=== PATIENT | female | born 1945 | race Caucasian/White ===

== ENCOUNTER 2016-11-08 09:29 | Outpatient (CLI) | payer MEDICARE, BC ==
[2016-11-08 10:04] LABS: Hemoglobin 14.8 g/dL (12.0-16.0); Mean Corpuscular HGB CONC 32.3 g/dL (32.0-36.0); Mean Corpuscular Hemoglobin 30.6 pg (27.0-31.0); Mean Corpuscular Volume 94.7 fl (81.0-99.0); Mean Platelet Volume 6.4 fL (7.4-10.4); Platelet Count 325 thou/uL (130-400); RBC Distribution Width 12.2 % (11.5-14.5); Red Blood Cell (RBC) Count 4.84 mill/uL (4.20-5.40); White Blood Cell (WBC) Count 10.3 thou/uL (4.8-10.8)
[2016-11-08 10:24] LABS: ALT (SGPT) 17 U/L (0-55); AST (SGOT) 16 U/L (5-34); Albumin 4.6 g/dL (3.4-4.8); Alkaline Phosphatase 112 U/L (40-150); Anion Gap 16 mmol/L (10-20); BUN (Urea Nitrogen) 27 mg/dL (9.8-20.1); Bilirubin, Total 0.6 mg/dL (0.2-1.2); Calc. Creatinine Clearance 0 mL/min (70-130); Calcium 10.3 mg/dL (7.8-10.44); Carbon Dioxide 27 mmol/L (23-31); Cardiac Risk 2.6 (Less than 4.5); Chloride 99 mmol/L (98-107); Cholesterol 169 mg/dL (< 200 Desired); Estimated GFR-MDRD 41; Globulin 3.1 g/dL (2.4-3.5); Glucose 104 mg/dL (80-115); HDL Cholesterol 66 mg/dL (>60 Neg Risk); LDL Cholesterol, Calculated 58 mg/dL; Potassium 4.5 mmol/L (3.5-5.1); Protein, Total 7.7 g/dL (5.8-8.1); Sodium 137 mmol/L (136-145); Triglycerides 227 mg/dL (Less than 150)
[2016-11-08 13:19] LABS: Thyroid Stimulating Hormone 2.9444 uIU/mL (0.35-4.94); Vitamin D, 25 Hydroxy 23.2 ng/mL (> 30.0)
== END 2016-11-08 09:30 | disposition home or self-care (01) ==
LOC: MADLAB 09:29
PROVIDERS: ATTEND Internal Medicine
DX: Z00.00 Encounter for general adult medical examination without abnormal findings (principal); E78.00 Pure hypercholesterolemia, unspecified; R53.83 Other fatigue; E55.9 Vitamin D deficiency, unspecified; I10 Essential (primary) hypertension
CPT/HCPCS: 36415; 80053; 80061; 82306; 84443; 85027

== ENCOUNTER 2017-05-02 10:34 | Outpatient (CLI) | payer MEDICARE, BC ==
[2017-05-02 11:11] LABS: Hemoglobin 15.1 g/dL (12.0-16.0); Mean Corpuscular HGB CONC 32.3 g/dL (32.0-36.0); Mean Corpuscular Hemoglobin 30.9 pg (27.0-31.0); Mean Corpuscular Volume 95.6 fl (81.0-99.0); Mean Platelet Volume 6.2 fL (7.4-10.4); Platelet Count 333 thou/uL (130-400); RBC Distribution Width 12.6 % (11.5-14.5); Red Blood Cell (RBC) Count 4.87 mill/uL (4.20-5.40); White Blood Cell (WBC) Count 8.5 thou/uL (4.8-10.8)
[2017-05-02 12:03] LABS: Bilirubin Negative (Negative); Blood, Urine Trace (Negative); Clarity Clear (Clear); Glucose, Urine (Dipstick) Negative (Negative); Leukocyte Negative (Negative); Nitrite Negative (Negative); Protein, Urine (Dipstick) Negative (Neg-Trace); Urobilinogen 0.2 mg/dL (0.2-1.0)
[2017-05-02 12:11] LABS: ALT (SGPT) 20 U/L (8-55); AST (SGOT) 15 U/L (5-34); Alkaline Phosphatase 137 U/L (40-150); Anion Gap 12 mmol/L (10-20); BUN (Urea Nitrogen) 22 mg/dL (9.8-20.1); Bilirubin, Total 0.5 mg/dL (0.2-1.2); Calc. Creatinine Clearance 0 mL/min (70-130); Calcium 9.6 mg/dL (7.8-10.44); Carbon Dioxide 30 mmol/L (23-31); Cardiac Risk 2.7 (Less than 4.5); Chloride 102 mmol/L (98-107); Cholesterol 166 mg/dl (< 200 Desired); Estimated GFR-MDRD 47; Globulin 3.2 g/dL (2.4-3.5); Glucose 99 mg/dL (80-115); HDL Cholesterol 61 mg/dL (>60 Neg Risk); LDL Cholesterol, Calculated 71 mg/dL; Potassium 4.2 mmol/L (3.5-5.1); Protein, Total 7.2 g/dL (6.0-8.3); Sodium 140 mmol/L (136-145); Triglycerides 172 mg/dL (Less than 150)
[2017-05-02 12:22] LABS: Bacteria/HPF Rare-Few HPF (None Seen); RBC/HPF 0-3 HPF (0-3); Squamous Epithelial 0-3 HPF (0-3); WBC/HPF 0-3 HPF (0-3)
[2017-05-02 12:24] LABS: Thyroid Stimulating Hormone 2.1155 uIU/mL (0.35-4.94); Vitamin D, 25 Hydroxy 36.1 ng/ml (> 30.0)
== END 2017-05-02 10:35 | disposition home or self-care (01) ==
LOC: MADLAB 10:34
PROVIDERS: ATTEND Internal Medicine
DX: Z00.00 Encounter for general adult medical examination without abnormal findings (principal); E03.9 Hypothyroidism, unspecified; E55.9 Vitamin D deficiency, unspecified; E78.00 Pure hypercholesterolemia, unspecified; I10 Essential (primary) hypertension; R53.83 Other fatigue; Z79.899 Other long term (current) drug therapy
CPT/HCPCS: 36415; 80053; 80061; 81003; 81015; 82306; 84443; 85027

== ENCOUNTER 2017-12-11 16:17 | Emergency (ER) | payer MEDICARE, BC ==
[2017-12-11] MEDS ORDERED: Dexamethasone 4 MG TAB ONE (16:53)
[2017-12-11] MEDS ORDERED: Dexamethasone 10 MG/ML VIAL ONE (16:53)
--- NOTE | 2017-12-11 17:21 | RAD ---
TWO VIEWS OF THE CHEST: COMPARISON: 05/06/2015 HISTORY: Shortness of breath for a day. FINDINGS: Two views of the chest show normal sized cardiomediastinal silhouette. There is no evidence of consol idation, mass, or pleural effusion. Degenerative changes are seen in the spine. There appear to be remote bilateral rib fractures. IMPRESSION: No evidence of acute cardiopulmonary disease. POS: [facility]
[2017-12-11] MEDS ORDERED: Albuterol Sulfate 2.5 mg/0.5 ml Neb ONE (17:24)
[2017-12-11 18:24] LABS: #Basophils 0.1 thou/uL (0.0-0.2); #Eosinphils 0.4 thou/uL (0.0-0.7); #Monocytes 0.5 thou/uL (0.11-0.59); #Neutrophils 7.8 thou/uL (1.40-6.50); %Basophils 0.5 % (0.0-1.0); %Eosinophils 4.1 % (0.0-10.0); %Lymphocytes 18.4 % (21.0-51.0); %Monocytes 4.8 % (0.0-10.0); %Neutrophils 72.2 % (42.0-75.0); Hemoglobin 14.2 g/dL (12.0-16.0); Mean Corpuscular HGB CONC 32.4 g/dL (32.0-36.0); Mean Corpuscular Hemoglobin 30.8 pg (27.0-31.0); Mean Corpuscular Volume 95.3 fl (81.0-99.0); Mean Platelet Volume 6.2 fL (7.4-10.4); Platelet Count 226 thou/uL (130-400); RBC Distribution Width 12.2 % (11.5-14.5); White Blood Cell (WBC) Count 10.9 thou/uL (4.8-10.8)
[2017-12-11] MEDS ORDERED: Magnesium Sulfate 2 GM/NS 0.9% 50 ML BAG ONE (18:25)
[2017-12-11] MEDS ORDERED: Azithromycin 500 MG VIAL ONE (18:25)
[2017-12-11] MEDS ORDERED: Sterile Water 10 ML ONE (18:31)
[2017-12-11 18:46] LABS: ALT (SGPT) 18 U/L (8-55); AST (SGOT) 19 U/L (5-34); Albumin 4.2 g/dL (3.4-4.8); Alkaline Phosphatase 98 U/L (40-150); Anion Gap 15 mmol/L (10-20); BUN (Urea Nitrogen) 18 mg/dL (9.8-20.1); Bilirubin, Total 0.6 mg/dL (0.2-1.2); Calc. Creatinine Clearance 0 mL/min (70-130); Carbon Dioxide 25 mmol/L (23-31); Chloride 106 mmol/L (98-107); Estimated GFR-MDRD 63; Glucose 134 mg/dL (83-110); Potassium 3.8 mmol/L (3.5-5.1); Protein, Total 7.2 g/dL (6.0-8.3); Sodium 142 mmol/L (136-145)
[2017-12-11 18:47] LABS: CKMB 2.4 ng/mL (0-6.6); Troponin I Less than 0.010 ng/mL (< 0.028)
== END 2017-12-11 18:50 | disposition short-term general hospital (02) ==
LOC: MADERS 16:17
DX: J45.901 Unspecified asthma with (acute) exacerbation (principal); E78.5 Hyperlipidemia, unspecified; I71.2 Thoracic aortic aneurysm, without rupture; G89.29 Other chronic pain; I10 Essential (primary) hypertension; F32.9 Major depressive disorder, single episode, unspecified; Z79.899 Other long term (current) drug therapy
CPT/HCPCS: 36415; 71046; 80053; 82553; 83880; 84484; 85025; 94760; 96365; A4216; J0456; J1100; J3475; J7611; J7620; J8540

== ENCOUNTER 2018-04-11 21:37 | Inpatient (IN) | payer MEDICARE, BC ==
[2018-04-11] MEDS ORDERED: Lorazepam 1 MG TAB PO PRN (22:24)
[2018-04-11] MEDS ORDERED: traZODone HCl 50 MG TAB PO PRN (22:27)
[2018-04-11 22:28] VITALS: BMI 32.3
[2018-04-11] MEDS ORDERED: Acetaminophen 325 MG TAB PO PRN (22:28)
[2018-04-11] MEDS ORDERED: Atorvastatin Calcium 10 MG TAB PO SCH (22:30)
[2018-04-11] MEDS ORDERED: Doxycycline 100 MG CAP PO SCH (22:30)
[2018-04-11] MEDS ORDERED: traZODone HCl 50 MG TAB PO SCH (22:30)
[2018-04-11] MEDS ORDERED: Apixaban 5 MG TAB PO SCH (22:30)
[2018-04-11] MEDS ORDERED: Latanoprost 0.005% Ophth Soln 2.5 ml Bottle EA EYE SCH (22:30)
[2018-04-12] MEDS: Mometasone/Formoterol 60 PUFF AER INH SCH ×2 (08:53→18:49)
[2018-04-12] MEDS: Doxycycline 100 MG CAP PO SCH ×2 (08:55→20:17)
[2018-04-12] MEDS ORDERED: Apixaban 5 MG TAB PO SCH (09:00)
[2018-04-12] MEDS ORDERED: Ondansetron ODT 4 MG TAB PO PRN (09:16)
[2018-04-12] MEDS ORDERED: Lorazepam 1 MG TAB PO PRN (09:18)
[2018-04-12] MEDS ORDERED: Acetaminophen 325 MG TAB PO PRN (09:18)
[2018-04-12] MEDS: Dronedarone HCl 400 MG TAB PO SCH (17:04)
[2018-04-12] MEDS: Atorvastatin Calcium 10 MG TAB PO SCH (20:17)
[2018-04-12] MEDS: traZODone HCl 50 MG TAB PO SCH (20:18)
[2018-04-12] MEDS: Apixaban 5 MG TAB PO SCH (20:19)
[2018-04-12] MEDS: Latanoprost 0.005% Ophth Soln 2.5 ml Bottle EA EYE SCH (20:25)
[2018-04-12] MEDS ORDERED: Latanoprost 0.005% Ophth Soln 2.5 ml Bottle EA EYE SCH (21:00)
[2018-04-12] MEDS ORDERED: Atorvastatin Calcium 10 MG TAB PO SCH (21:00)
--- NOTE | 2018-04-13 00:44 | HP ---
DATE OF ADMISSION: 04/11/2018 ADMITTING PHYSICIAN: Albert Haynes M.D. REASON FOR ADMISSION: Skilled rehabilitation at [facility] swing bed for physical debility, status post COPD and asthma exacerbation. HISTORY OF PRESENT ILLNESS: Ms. Carrillo is a 72-year-old female with a medical history of CABG and aortic aneurysm, status post aneurysm resection of the ascending aorta and transverse aortic patch on 03/25/2018 in [place], [place]. The patient had presented to the emergency room on the 04 of April, complaining of worsening shortness of breath. The patient states since surgery , she has had shortness of breath and exacerbation of her asthma and she was then not treated appropriately. She states as she got home, shortness of breath progressively worsened and she denied any chest pains or palpitations. Due to recent cardiac history and asthma exacerbation, the patient was subsequently admitted to the hospital. During hospitalization, she was noted to have irregular heart rate and she was evaluated by public relations representative, Dr. Sequeira , and she was evaluated by clutch specialist and she was noted to have some atrial fibrillation and atrial flutter, which responded and returned back to normal sinus rhythm after starting her on Multaq. The patient was also noted to have left pleural effusions and she underwent a thoracocentesis on 04/08/2018. The patient was treated with antibiotics. She was started on Eliquis. She was treated with antibiotics, neb treatments and shortness of breath progressively improved. The patient did have an echocardiogram done on the that showed a EF of 55%-60%, diastolic dysfunction. The patient's condition progressively improved, but she was noted to be physically deconditioned. She had episodes of low blood pressure in the hospital and her blood pressure medicine was decreased and this subsequently helped the blood pressure issue. The patient's respiratory status progressively improved and due to social history at home being living by herself and her caregiver will be moving back to her home out of town and the patient was deconditioned, the decision was made to come to [facility] for skilled rehabilitation prior to discharge to her home. The patient was admitted on the April 11. Upon evaluation, she was doing okay. She was excited to start therapy so she could be independent once she returns back to her home. She still needs oxygen nasal cannula at 3 liters, but other than that, she denies any shortness of breath. She denies any chest pain. She denies any palpitation or dizziness. PAST MEDICAL HISTORY: Asthma, glaucoma, hyperlipidemia, ascending aortic aneurysm, status post repair on day and status post CABG on the 9, hypertension, chronic back pain. PAST SURGICAL HISTORY: 1. CABG. 2. Tonsillectomy. 3. Hysterectomy. 4. Bladder suspension. 5. Surgery for endometriosis. PSYCHIATRIC: History of depression. SOCIAL HISTORY: Lives at home, family close by. No smoking history. Drinks socially rarely. Denies any illicit drug use. ALLERGIES: NAPROXEN and PENICILLIN. CODE STATUS: FULL CODE. MEDICATIONS: Eliquis 5 mg b.i.d., Lipitor 10 at bedtime, Cardizem 30 b.i.d., doxycycline 100 b.i.d., Multaq 400 b.i.d., Ativan 1 tab q.8 p.r.n. agitation, Dulera 2 puffs b.i.d., trazodone 100 p.o. at bedtime and one extra if needed. REVIEW OF SYSTEMS: General: Patient denies any fever or chills. Denies any nausea, vomiting. HEENT: No vision changes, hearing or dyspnea. Chest: Denies any chest pain, denies shortness of breath, palpitation, or dizziness. Respiratory: Denies any recent cough, shortness of breath or wheezing. Abdomen : Denies any abdominal pain, constipation, nausea. Genitourinary: Denies dysuria or hematuria. Skin: Denies easy bruising. Musculoskeletal: Complains of soreness to the thoracic wall complains of gait instability. Neurologic: Denies any memory loss. PSYCHIATRIC: Complains of occasional anxiety. PHYSICAL EXAMINATION: VITAL SIGNS: Temperature 98.3, pulse 74, respirations 20, O2 sat nasal cannula 3 liters 98%, blood pressure 109/56. GENERAL APPEARANCE: Patient is alert, awake, oriented x3. No apparent distress , sitting up in a bedside chair. CARDIAC: S1, S2, no murmurs. Mid chest with well healing incision RESPIRATIONS: Chest reveals decreased breath sounds in the left lung. ABDOMEN: Positive bowel sounds, soft, nontender, no masses. EXTREMITIES: No edema, no calf tenderness. NEUROLOGIC: Alert, awake, oriented x3. Cranial nerves II-XII grossly intact. ASSESSMENT: 1. Physical debility. 2. Left lung atelectasis. 3. Small pleural effusion. 4. Status post recent thoracic aortic aneurysm surgery. 5. Status post coronary artery disease and coronary artery bypass graft. 6. Acute asthma exacerbation. 7. Atrial fibrillation with ventricular response, now returned to normal sinus on Multaq. 8. Depression with anxiety. 9. Glaucoma. PLAN: The patient has been admitted to [facility] swing bed for rehabilitation and gait strengthening prior to return to her home. We will consult physical therapy and for strengthening in order to gain modified independence with gait. We will consult occupational therapy to help with activities of daily living prior to returning to her home. We will continue DuoNebs scheduled and p.r.n. as needed. We will continue patient on doxycycline to complete a 7-day course. We will monitor respiratory status closely and slowly try to wean off the oxygen as tolerated. We will place the patient on Protonix for gastrointestinal prophylaxis. She is already on Eliquis. She does not need any further DVT prophylaxis. We will monitor blood pressure closely. We will monitor for any hemodynamic instability or any medical comorbidities that may interfere with rehabilitation process. Extended length of stay 2-3 weeks. DISPOSITION: Home. CODE STATUS: FULL CODE. MTDD
[2018-04-13] MEDS: Doxycycline 100 MG CAP PO SCH ×3 (02:03→21:01)
[2018-04-13 06:15] LABS: Hemoglobin 11.1 g/dL (12.0-16.0); Platelet Count 359 thou/uL (130-400)
[2018-04-13] MEDS: Mometasone/Formoterol 60 PUFF AER INH SCH ×2 (09:01→18:14)
[2018-04-13] MEDS: Apixaban 5 MG TAB PO SCH ×2 (09:03→21:01)
[2018-04-13] MEDS: Dronedarone HCl 400 MG TAB PO SCH ×2 (09:03→16:52)
[2018-04-13] MEDS: traZODone HCl 50 MG TAB PO SCH (21:01)
[2018-04-13] MEDS: Atorvastatin Calcium 10 MG TAB PO SCH (21:02)
[2018-04-13] MEDS: Latanoprost 0.005% Ophth Soln 2.5 ml Bottle EA EYE SCH (21:02)
[2018-04-14] MEDS: Mometasone/Formoterol 60 PUFF AER INH SCH ×2 (08:47→18:02)
[2018-04-14] MEDS: Doxycycline 100 MG CAP PO SCH ×2 (08:49→21:20)
[2018-04-14] MEDS: Dronedarone HCl 400 MG TAB PO SCH ×2 (08:49→16:31)
[2018-04-14] MEDS: Apixaban 5 MG TAB PO SCH ×2 (08:50→21:19)
[2018-04-14] MEDS: Atorvastatin Calcium 10 MG TAB PO SCH (21:19)
[2018-04-14] MEDS: Latanoprost 0.005% Ophth Soln 2.5 ml Bottle EA EYE SCH (21:21)
[2018-04-14] MEDS: traZODone HCl 50 MG TAB PO SCH (21:22)
[2018-04-15 05:23] LABS: Hemoglobin 11.8 g/dL (12.0-16.0); Platelet Count 310 thou/uL (130-400)
[2018-04-15] MEDS: Mometasone/Formoterol 60 PUFF AER INH SCH ×2 (06:22→18:01)
[2018-04-15] MEDS: Doxycycline 100 MG CAP PO SCH ×2 (09:02→21:17)
[2018-04-15] MEDS: Apixaban 5 MG TAB PO SCH ×2 (09:03→21:16)
[2018-04-15] MEDS: Dronedarone HCl 400 MG TAB PO SCH ×2 (09:04→16:43)
[2018-04-15] MEDS ORDERED: Venlafaxine XR 37.5 MG CAP PO SCH (17:30)
[2018-04-15] MEDS: Latanoprost 0.005% Ophth Soln 2.5 ml Bottle EA EYE SCH (21:14)
[2018-04-15] MEDS: traZODone HCl 50 MG TAB PO SCH (21:15)
[2018-04-15] MEDS: Atorvastatin Calcium 10 MG TAB PO SCH (21:16)
[2018-04-16] MEDS: Mometasone/Formoterol 60 PUFF AER INH SCH ×2 (06:32→17:04)
[2018-04-16] MEDS: Doxycycline 100 MG CAP PO SCH ×2 (08:10→20:19)
[2018-04-16] MEDS: DESVENLAFAXINE SUCCINATE 50 MG PO SCH (08:10)
[2018-04-16] MEDS: Apixaban 5 MG TAB PO SCH ×2 (08:10→20:18)
[2018-04-16] MEDS: Dronedarone HCl 400 MG TAB PO SCH ×2 (08:10→17:10)
[2018-04-16] MEDS ORDERED: Venlafaxine XR 37.5 MG CAP PO SCH (09:00)
[2018-04-16] MEDS: Atorvastatin Calcium 10 MG TAB PO SCH (20:18)
[2018-04-16] MEDS: traZODone HCl 50 MG TAB PO SCH (20:19)
[2018-04-16] MEDS: Latanoprost 0.005% Ophth Soln 2.5 ml Bottle EA EYE SCH (20:19)
[2018-04-17 05:48] LABS: Hemoglobin 10.7 g/dL (12.0-16.0); Platelet Count 233 thou/uL (130-400)
[2018-04-17] MEDS: Mometasone/Formoterol 60 PUFF AER INH SCH ×2 (06:19→18:15)
[2018-04-17] MEDS: Dronedarone HCl 400 MG TAB PO SCH ×2 (08:13→17:45)
[2018-04-17] MEDS: Apixaban 5 MG TAB PO SCH ×2 (08:13→20:51)
[2018-04-17] MEDS: DESVENLAFAXINE SUCCINATE 50 MG PO SCH (08:14)
[2018-04-17] MEDS ORDERED: Polyethylene Glycol 3350 17 GM Packet PO PRN (20:34)
[2018-04-17] MEDS: Atorvastatin Calcium 10 MG TAB PO SCH (20:51)
[2018-04-17] MEDS: Latanoprost 0.005% Ophth Soln 2.5 ml Bottle EA EYE SCH (20:52)
[2018-04-17] MEDS: traZODone HCl 50 MG TAB PO SCH (20:57)
[2018-04-18] MEDS: Mometasone/Formoterol 60 PUFF AER INH SCH ×2 (07:39→19:25)
[2018-04-18] MEDS: Dronedarone HCl 400 MG TAB PO SCH ×2 (08:21→16:44)
[2018-04-18] MEDS: DESVENLAFAXINE SUCCINATE 50 MG PO SCH (08:21)
[2018-04-18] MEDS: Apixaban 5 MG TAB PO SCH ×2 (08:21→21:10)
[2018-04-18] MEDS: Atorvastatin Calcium 10 MG TAB PO SCH (21:10)
[2018-04-18] MEDS: Latanoprost 0.005% Ophth Soln 2.5 ml Bottle EA EYE SCH (21:10)
[2018-04-18] MEDS: traZODone HCl 50 MG TAB PO SCH (21:11)
[2018-04-19] MEDS: Mometasone/Formoterol 60 PUFF AER INH SCH ×2 (05:32→19:52)
[2018-04-19 05:35] LABS: Hemoglobin 10.5 g/dL (12.0-16.0); Platelet Count 218 thou/uL (130-400)
[2018-04-19] MEDS: DESVENLAFAXINE SUCCINATE 50 MG PO SCH (09:20)
[2018-04-19] MEDS: Apixaban 5 MG TAB PO SCH ×2 (09:21→20:14)
[2018-04-19] MEDS: Dronedarone HCl 400 MG TAB PO SCH ×2 (09:23→17:07)
[2018-04-19] MEDS: Atorvastatin Calcium 10 MG TAB PO SCH (20:14)
[2018-04-19] MEDS: Latanoprost 0.005% Ophth Soln 2.5 ml Bottle EA EYE SCH (20:15)
[2018-04-19] MEDS: traZODone HCl 50 MG TAB PO SCH (20:15)
[2018-04-20] MEDS: Mometasone/Formoterol 60 PUFF AER INH SCH ×2 (07:46→21:18)
[2018-04-20] MEDS: Apixaban 5 MG TAB PO SCH ×2 (08:26→21:20)
[2018-04-20] MEDS: Dronedarone HCl 400 MG TAB PO SCH ×2 (08:26→17:09)
[2018-04-20] MEDS: DESVENLAFAXINE SUCCINATE 50 MG PO SCH (08:27)
[2018-04-20] MEDS: Atorvastatin Calcium 10 MG TAB PO SCH (21:20)
[2018-04-20] MEDS: traZODone HCl 50 MG TAB PO SCH (21:21)
[2018-04-20] MEDS: Latanoprost 0.005% Ophth Soln 2.5 ml Bottle EA EYE SCH (21:24)
[2018-04-21] MEDS: Mometasone/Formoterol 60 PUFF AER INH SCH ×2 (06:21→18:14)
[2018-04-21 06:39] LABS: Hemoglobin 11.4 g/dL (12.0-16.0); Platelet Count 218 thou/uL (130-400)
[2018-04-21] MEDS: Apixaban 5 MG TAB PO SCH ×2 (08:38→20:39)
[2018-04-21] MEDS: Dronedarone HCl 400 MG TAB PO SCH ×2 (08:38→17:21)
[2018-04-21] MEDS: DESVENLAFAXINE SUCCINATE 50 MG PO SCH (08:39)
[2018-04-21] MEDS: Atorvastatin Calcium 10 MG TAB PO SCH (20:39)
[2018-04-21] MEDS: Latanoprost 0.005% Ophth Soln 2.5 ml Bottle EA EYE SCH (20:40)
[2018-04-21] MEDS: traZODone HCl 50 MG TAB PO SCH (20:40)
[2018-04-22] MEDS: Mometasone/Formoterol 60 PUFF AER INH SCH (05:55)
[2018-04-22 07:21] VITALS: BP 111/59; TEMP 98.2
[2018-04-22] MEDS: Apixaban 5 MG TAB PO SCH (08:19)
[2018-04-22] MEDS: Dronedarone HCl 400 MG TAB PO SCH (08:20)
[2018-04-22] MEDS: DESVENLAFAXINE SUCCINATE 50 MG PO SCH (08:20)
--- NOTE | 2018-04-22 10:49 | RAD ---
FRONTAL VIEW CHEST: Comparison: 04-09-18 Indication: Pulmonary effusion/pleural fluid. FINDINGS: There is enlargement of the cardiac silhouette and prominence of the pulmonary vasculature. There is added density at the inferior left chest with obscuration of the left hemidiaphragm. Chest is otherwi se similar. IMPRESSION: 1. Left basilar opacity indicating pleural fluid with trace atelectasis and/or pneumonia. 2. CHF. 3. Continued follow up is warranted. POS: [facility]
--- NOTE | 2018-04-23 01:34 | DIS ---
DATE OF ADMISSION: 04/11/2018 DATE OF DISCHARGE: 04/22/2018 DISCHARGING PHYSICIAN: Albert Haynes MD PRIMARY CARE PHYSICIAN: Sue Mayer MD DISCHARGING DIAGNOSES: 1. Physical debility, improving. 2. Acute asthma exacerbation, resolved. 3. Depression with anxiety, improving. 4. Left pleural effusion versus left lung atelectasis to be monitored. 5. Status post recent thoracic aortic aneurysm surgery. 6. New onset of atrial fibrillation with ventricular response. DISCHARGE MEDICATIONS: Eliquis 5 mg b.i.d., Lipitor 10 mg at bedtime, Pristiq 50 mg daily, Cardizem 30 mg b.i.d., Multaq 400 b.i.d., trazodone 100 1-2 tabs at bedtime, Symbicort 2 puffs b.i.d., Ativan 1 mg at bedtime p.r.n. for anxiety and agitation, latanoprost eyedrops 1-2 drops in each eye, DuoNeb q.4 hours p.r.n. for shortness of breath and wheezing. DISCHARGE INSTRUCTIONS: Follow up with PCP within 2 weeks. Follow up with termite treater in 1 week. [facility] to resume PT, OT services in a.m. Follow up with admin secretary at the end of the month. Heart healthy diet. Ambulate with walker as needed fall precautions. BRIEF HOSPITAL COURSE: Ms. Carrillo is a 72-year-old female who was admitted to [facility] in [place] for skilled rehabilitation for physical therapy, status post COPD and asthma exacerbation, pt is also status post recent CABG and aortic aneurysm resection, repair March/2018. During hospitalization in [place], she was started on and completed oral antibiotics. She did much better with the scheduled DuoNeb, which was subsequently changed from routine to as needed. The patient was able to be weaned off oxygen after a couple of days of hospitalization in [place]. Her breathing was much improved and stabilized. She was able to participate with physical therapy, and progressed nicely during hospitalization, the patient was noted to be having severe depression and anxiety spells and it was noted that her antidepressants and Pristiq were discontinued while she went for heart surgery in [place]. Patient's medication were restarted and depression and emotional status were able to improve nicely. The patient participated with physical therapy and on day of discharge, was able to ambulate at least 150 feet to and from with physical therapy using a rolling walker. The patient was excited to be going back to her home as she just had a new granddaughter about 2 days ago. She was subsequently discharged home in a stable condition with family members. The patient had a repeat chest x-ray done prior to discharge, which shows a left basilar opacity indicating some pleural fluid and some trace atelectasis. Patient was told to continuously use incentive spirometry and follow up with a termite treater, Dr. Alcantar within 1 week of discharge. The patient will be continued with [facility] in her home for physical therapy and occupational therapy. CODE STATUS: The patient is a FULL CODE. DISCHARGE VITAL SIGNS: Temperature 98.2, pulse 76, respirations 18, blood pressure 111/59, O2 sat 93% on room air. MTDD
== END 2018-04-22 15:55 | disposition home health service (06) | DRG 948 ==
LOC: MADMS 21:37
PROVIDERS: ADMIT Family Medicine; ATTEND Family Medicine
DX: R53.81 Other malaise (principal); J98.11 Atelectasis; J90 Pleural effusion, not elsewhere classified; J45.901 Unspecified asthma with (acute) exacerbation; J44.9 Chronic obstructive pulmonary disease, unspecified; Z95.1 Presence of aortocoronary bypass graft; H40.9 Unspecified glaucoma; E78.5 Hyperlipidemia, unspecified; I10 Essential (primary) hypertension; Z90.710 Acquired absence of both cervix and uterus; F32.9 Major depressive disorder, single episode, unspecified; F41.8 Other specified anxiety disorders; I48.91 Unspecified atrial fibrillation
CPT/HCPCS: 36415; 71045; 82565; 85014; 85018; 85049; 94640; G8987-GO-CK; G8988-GO-CH; J7620

== ENCOUNTER 2018-07-25 10:07 | Emergency (ER) | payer MEDICARE, BC ==
[2018-07-25] MEDS ORDERED: Acetaminophen 325 MG TAB ONE (10:53)
[2018-07-25] MEDS ORDERED: HYDROcodone/Acetaminophen 5/325 mg Tablet ONE (10:53)
--- NOTE | 2018-07-25 11:34 | RAD ---
LEFT HAND 3 VIEWS: Date: 07/25/18 HISTORY: Injury. COMPARISON: None. FINDINGS: There is a spiral-type fracture of the fifth metacarpal diaphysis extending from the proximal to dist al metaphysis. Severe degenerative changes of the thumb carpometacarpal joint. Mild interphalangeal joint space narrowing. There is also fracture, interarticular, of the lateral ba se of the proximal phalanx of the index finger. IMPRESSION: Two separate fractures, one a spiral-type fracture of the fifth metacarpal diaphysis and a second int ra-articular chip-type fracture of the lateral cortex of the proximal phalanx of the index finger. POS: [facility]
== END 2018-07-25 11:23 | disposition home or self-care (01) ==
LOC: MADERS 10:07
DX: S62.232A Other displaced fracture of base of first metacarpal bone, left hand, initial encounter for closed fracture (principal); J45.909 Unspecified asthma, uncomplicated; E78.5 Hyperlipidemia, unspecified; I10 Essential (primary) hypertension; F32.9 Major depressive disorder, single episode, unspecified; F41.9 Anxiety disorder, unspecified; W20.8XXA Other cause of strike by thrown, projected or falling object, initial encounter

== ENCOUNTER 2019-05-29 14:15 | Outpatient (CLI) | payer MEDICARE, BC ==
--- NOTE | 2019-05-29 15:45 | RAD ---
LEFT ANKLE THREE VIEWS: 05/29/19 HISTORY: Stepped on by a bull six days ago. Persistent swelling. FINDINGS: There is lateral soft tissue swelling. On the oblique projection, there is a suggestion of a possible nondisplaced lateral malleolus fracture. Hypertrophy of the calcaneus at the Achilles tendon insertion site. There are degenerative changes of the talonavicular joint space. IMPRESSION: Nondisplaced distal fibula/lateral malleolus fracture suspected. Only appreciated on the lateral proj ection. There is association soft tissue swelling. POS: [facility]
--- NOTE | 2019-05-29 15:48 | RAD ---
LEFT FOOT 3 VIEWS: HISTORY: Pain. Stepped on a bowl 6 days ago. Swelling. FINDINGS: Mild degenerative change in the 1st metatarsophalangeal joint space. No fractures. No cortical irre gularity. No periosteal reaction. Lisfranc alignment is maintained. There is soft tissue swelling. IMPRESSION: Soft tissue swelling without evidence of fracture. POS: [facility]
== END 2019-05-29 14:16 | disposition home or self-care (01) ==
LOC: MADRAD 14:15
PROVIDERS: ATTEND Nurse Practitioner Family
DX: S99.912A Unspecified injury of left ankle, initial encounter (principal); S99.922A Unspecified injury of left foot, initial encounter; M79.89 Other specified soft tissue disorders

== ENCOUNTER 2019-06-13 10:09 | Emergency (ER) | payer MEDICARE, BC ==
[~2019-06-13 10:09] MED LIST: Sodium Chloride 0.9% Irrigation 1000 ML BOT ONE
== END 2019-06-13 11:33 | disposition home or self-care (01) ==
LOC: MADERS 10:09
DX: L97.429 Non-pressure chronic ulcer of left heel and midfoot with unspecified severity (principal); J45.909 Unspecified asthma, uncomplicated; E78.5 Hyperlipidemia, unspecified; E78.00 Pure hypercholesterolemia, unspecified; I10 Essential (primary) hypertension; F32.9 Major depressive disorder, single episode, unspecified; F41.9 Anxiety disorder, unspecified; Z79.01 Long term (current) use of anticoagulants; Z79.899 Other long term (current) drug therapy
CPT/HCPCS: 99283

== ENCOUNTER 2020-07-02 08:47 | Outpatient (CLI) | payer MEDICARE, BC | END 2020-07-02 08:48 | disposition home or self-care (01) | LOC: MADEKG 08:47 | PROVIDERS: ATTEND Internal Medicine Cardiovascular Disease | DX: I48.4 Atypical atrial flutter (principal) | CPT/HCPCS: 93005; 93010 ==

== ENCOUNTER 2020-07-06 12:00 | Emergency (ER) | payer MEDICARE, BC, OTHER ==
--- NOTE | 2020-07-06 13:01 | RAD ---
EXAM: Single view of the chest HISTORY: Dyspnea COMPARISON: 08/29/2019 FINDINGS: Single view of the chest shows a normal sized cardiomediastinal silhouette. The patient is status post sternotomy. There is no evidence of consolidation, mass, or pleural effusion. There appear to be remote healed left rib fractures. IMPRESSION: No evidence of acute cardiopulmonary disease
[2020-07-06 13:26] LABS: #Basophils 0.1 thou/uL (0.0-0.2); #Eosinphils 0.1 thou/uL (0.0-0.7); #Lymphocytes 2.1 thou/uL (1.20-3.40); #Monocytes 0.4 thou/uL (0.11-0.59); #Neutrophils 3.7 thou/uL (1.40-6.50); %Basophils 1.1 % (0.0-1.0); %Eosinophils 1.8 % (0.0-10.0); %Monocytes 6.8 % (0.0-10.0); %Neutrophils 57.4 % (42.0-75.0); Hemoglobin 14.7 g/dL (12.0-16.0); Mean Corpuscular Hemoglobin 29.5 pg (27.0-31.0); Mean Platelet Volume 6.3 fL (7.4-10.4); Platelet Count 262 thou/uL (130-400); RBC Distribution Width 11.6 % (11.5-14.5); Red Blood Cell (RBC) Count 4.98 mill/uL (4.20-5.40); White Blood Cell (WBC) Count 6.4 thou/uL (4.8-10.8)
[2020-07-06 13:38] LABS: ALT (SGPT) 14 U/L (8-55); AST (SGOT) 18 U/L (5-34); Albumin 4.4 g/dL (3.4-4.8); Alkaline Phosphatase 104 U/L (40-110); Anion Gap 16 mmol/L (10-20); BUN (Urea Nitrogen) 14 mg/dL (9.8-20.1); Bilirubin, Total 0.7 mg/dL (0.2-1.2); Calc. Creatinine Clearance 0 mL/min (70-130); Calcium 9.5 mg/dL (7.8-10.44); Carbon Dioxide 26 mmol/L (23-31); Chloride 103 mmol/L (98-107); Estimated GFR-MDRD 47; Globulin 3.1 g/dL (2.4-3.5); Glucose 94 mg/dL (83-110); Potassium 3.8 mmol/L (3.5-5.1); Protein, Total 7.5 g/dL (6.0-8.3); Sodium 141 mmol/L (136-145)
[2020-07-07 16:49] LABS: SARS-CoV-2 MS2 Positive; SARS-CoV-2 N Gene Negative; SARS-CoV-2 S Gene Negative; SARS-CoV-2 by NAA Not Detected (NotDetected); SARS-CoV-2 orf1ab Negative
== END 2020-07-06 15:50 | disposition home or self-care (01) ==
LOC: MADERS 12:00
DX: R42 Dizziness and giddiness (principal); J45.909 Unspecified asthma, uncomplicated; E78.5 Hyperlipidemia, unspecified; Z20.828 Contact with and (suspected) exposure to other viral communicable diseases; E78.00 Pure hypercholesterolemia, unspecified; I10 Essential (primary) hypertension; F32.9 Major depressive disorder, single episode, unspecified; F41.9 Anxiety disorder, unspecified; Z79.899 Other long term (current) drug therapy
CPT/HCPCS: 71045; 80053; 83880; 84484; 85025; 87804 ×2; 93005; 99284; U0003; 36415; 87635

== ENCOUNTER 2020-09-27 12:28 | Emergency (ER) | payer MEDICARE, BC | END 2020-09-27 13:42 | disposition home or self-care (01) | LOC: MADERS 12:28 | DX: M75.102 Unspecified rotator cuff tear or rupture of left shoulder, not specified as traumatic (principal); J45.909 Unspecified asthma, uncomplicated; E78.5 Hyperlipidemia, unspecified; I10 Essential (primary) hypertension; I71.4 Abdominal aortic aneurysm, without rupture; H40.9 Unspecified glaucoma; Z79.899 Other long term (current) drug therapy; Z79.01 Long term (current) use of anticoagulants | CPT/HCPCS: 99283 ==

== ENCOUNTER 2021-03-16 16:30 | Emergency (ER) | payer MEDICARE, BC | END 2021-03-16 18:35 | disposition home or self-care (01) | LOC: MADERS 16:30 | DX: S29.012A Strain of muscle and tendon of back wall of thorax, initial encounter (principal); J45.909 Unspecified asthma, uncomplicated; E78.5 Hyperlipidemia, unspecified; E78.00 Pure hypercholesterolemia, unspecified; I71.9 Aortic aneurysm of unspecified site, without rupture; I10 Essential (primary) hypertension; Z79.01 Long term (current) use of anticoagulants; Z79.899 Other long term (current) drug therapy; W17.89XA Other fall from one level to another, initial encounter | CPT/HCPCS: 71250; 72128 ==

== ENCOUNTER 2021-04-28 17:39 | Emergency (ER) | payer MEDICARE, BC ==
[2021-04-28 19:24] LABS: #Eosinphils 0.2 thou/uL (0.0-0.7); #Lymphocytes 1.4 thou/uL (1.20-3.40); #Monocytes 0.5 thou/uL (0.11-0.59); #Neutrophils 2.6 thou/uL (1.40-6.50); %Basophils 0.7 % (0.0-1.0); %Eosinophils 3.6 % (0.0-10.0); %Monocytes 11.3 % (0.0-10.0); %Neutrophils 54.4 % (42.0-75.0); Hemoglobin 14.3 g/dL (12.0-16.0); Mean Corpuscular HGB CONC 31.8 g/dL (32.0-36.0); Mean Corpuscular Hemoglobin 29.8 pg (27.0-31.0); Mean Corpuscular Volume 93.9 fL (78.0-98.0); Mean Platelet Volume 5.9 fL (7.4-10.4); Platelet Count 354 thou/uL (130-400); RBC Distribution Width 11.8 % (11.5-14.5); White Blood Cell (WBC) Count 4.8 thou/uL (4.8-10.8)
[2021-04-28 19:43] LABS: ALT (SGPT) 15 U/L (8-55); AST (SGOT) 20 U/L (5-34); Albumin 3.6 g/dL (3.4-4.8); Alkaline Phosphatase 141 U/L (40-110); Anion Gap 15 mmol/L (10-20); BUN (Urea Nitrogen) 13 mg/dL (9.8-20.1); Bilirubin, Total 0.5 mg/dL (0.2-1.2); Calc. Creatinine Clearance 0 mL/min (70-130); Calcium 9.8 mg/dL (7.8-10.44); Carbon Dioxide 29 mmol/L (23-31); Chloride 103 mmol/L (98-107); Globulin 3.4 g/dL (2.4-3.5); Glucose 101 mg/dL (83-110); Potassium 4.4 mmol/L (3.5-5.1); Sodium 143 mmol/L (136-145)
== END 2021-04-28 20:21 | disposition home or self-care (01) ==
LOC: MADERS 17:39
DX: R06.02 Shortness of breath (principal); J45.909 Unspecified asthma, uncomplicated; E78.5 Hyperlipidemia, unspecified; E78.00 Pure hypercholesterolemia, unspecified; I10 Essential (primary) hypertension; Z79.899 Other long term (current) drug therapy
CPT/HCPCS: 36415; 71045; 80053; 83880; 84484; 85025; 93005; 94760

== ENCOUNTER 2023-11-18 10:14 | Emergency (ER) | payer MEDICARE, BC ==
[2023-11-18 11:30] LABS: #Basophils 0.1 thou/uL (0.0-0.2); #Eosinphils 0.2 thou/uL (0.0-0.7); #Lymphocytes 1.6 thou/uL (1.20-3.40); #Monocytes 0.4 thou/uL (0.11-0.59); #Neutrophils 4.8 thou/uL (1.40-6.50); %Basophils 1.1 % (0.0-1.0); %Eosinophils 2.7 % (0.0-10.0); %Lymphocytes 22.4 % (21.0-51.0); %Neutrophils 67.9 % (42.0-75.0); Hematocrit 42.8 % (36.0-47.0); Hemoglobin 14.1 g/dL (12.0-16.0); Mean Corpuscular Hemoglobin 31.1 pg (27.0-31.0); Mean Corpuscular Volume 94.1 fl (78.0-98.0); Platelet Count 241 10x3/uL (130-400); RBC Distribution Width 12.5 % (11.5-14.5); Red Blood Cell (RBC) Count 4.54 mill/uL (4.20-5.40); White Blood Cell (WBC) Count 7.1 10x3/uL (4.8-10.8)
[2023-11-18 11:43] LABS: SARS-CoV-2 E Target Negative; SARS-CoV-2 N2 Target Negative; SARS-CoV-2 NAA Rapid Test Not Detected (NotDetected); SARS-CoV-2 RdRP gene Negative
[2023-11-18 11:45] LABS: Bilirubin Negative (Negative); Blood, Urine Trace (Negative); Glucose, Urine (Dipstick) Negative (Negative); Ketone, Urine Negative (Negative); Leukocyte Negative (Negative); Nitrite Negative (Negative); Protein, Urine (Dipstick) Negative (Neg-Trace); Specific Gravity, Urine 1.025 (1.005-1.030); Urobilinogen 0.2 mg/dL (Less than 2)
[2023-11-18 11:46] LABS: CAUTI Indications for Culture Pelvic or flank pain; Clarity Hazy (Clear)
[2023-11-18 11:50] LABS: Bacteria/HPF 1+ HPF (None Seen); RBC/HPF 0-3 HPF (0-3); WBC/HPF None Seen HPF (0-3)
[2023-11-18 11:51] LABS: Urine Culture Reflex No No
[2023-11-18] MEDS ORDERED: methylPREDNISolone Sod Succ/PF 125 MG/2 ML VIAL ONE (11:55)
[2023-11-18] MEDS ORDERED: Meclizine HCl 25 MG TAB ONE (11:55)
[2023-11-18] MEDS ORDERED: Ipratropium/Albuterol 3 ML NEB ONE (11:55)
[2023-11-18 11:56] LABS: ALT (SGPT) 18 U/L (8-55); AST (SGOT) 22 U/L (5-34); Albumin 4.3 g/dL (3.4-4.8); Alkaline Phosphatase 93 U/L (40-110); Anion Gap 14 mmol/L (10-20); BUN (Urea Nitrogen) 17 mg/dL (9.8-20.1); Bilirubin, Total 0.4 mg/dL (0.2-1.2); Calc. Creatinine Clearance 0 mL/min (70-130); Calcium 9.6 mg/dL (7.8-10.44); Carbon Dioxide 27 mmol/L (23-31); Chloride 104 mmol/L (98-107); Estimated GFR 71; Globulin 2.8 g/dL (2.4-3.5); Glucose 109 mg/dL (83-110); Magnesium 2.2 mg/dL (1.6-2.6); Potassium 4.6 mmol/L (3.5-5.1); Protein, Total 7.1 g/dL (5.8-8.1); Sodium 140 mmol/L (136-145)
== END 2023-11-18 12:39 | disposition home or self-care (01) ==
LOC: MADERS 10:14
DX: J06.9 Acute upper respiratory infection, unspecified (principal); J45.901 Unspecified asthma with (acute) exacerbation; R42 Dizziness and giddiness; I11.0 Hypertensive heart disease with heart failure; I50.9 Heart failure, unspecified; F32.A Depression, unspecified; E78.00 Pure hypercholesterolemia, unspecified
CPT/HCPCS: 70450; 71045; 80053; 81001; 83735; 83880; 85025; 87804 ×2; 93005; U0002; 36415; 96374; J2930; J7620

== ENCOUNTER 2025-05-15 09:27 | Outpatient (CLI) | payer MEDICARE, BC ==
[2025-05-15 10:10] LABS: ALT (SGPT) 14 U/L (Less than 34); AST (SGOT) 24 U/L (11-34); Albumin 4.6 g/dL (3.1-4.5); Alkaline Phosphatase 109 U/L (40-110); Anion Gap 17 mmol/L (10-20); BUN (Urea Nitrogen) 23 mg/dL (9.8-20.1); Bilirubin, Total 0.6 mg/dL (0.3-1.2); Calc. Creatinine Clearance 0 mL/min (70-130); Calcium 9.9 mg/dL (7.8-10.44); Carbon Dioxide 20 mmol/L (23-31); Chloride 106 mmol/L (98-107); Globulin 3.1 g/dL (2.4-3.5); Glucose 101 mg/dL (83-110); Potassium 4.9 mmol/L (3.5-5.1); Sodium 138 mmol/L (136-145)
== END 2025-05-15 09:28 | disposition home or self-care (01) ==
LOC: MADLAB 09:27
DX: R25.2 Cramp and spasm (principal); R35.0 Frequency of micturition
CPT/HCPCS: 36415; 80053; 83880; 87086